=== PATIENT | female | born 1995 | race Caucasian/White ===

== ENCOUNTER 2024-02-21 08:21 | Emergency (ER) | payer BC, SELFPAY ==
[2024-02-21 08:34] VITALS: BP 115/87; PULSE 96; RESP 18; TEMP 36.6; O2SAT 98
[2024-02-21 08:35] VITALS: BP 115/87; PULSE 96; RESP 18; TEMP 36.6; O2SAT 98
--- NOTE | 2024-02-21 08:46 | ED.URI ---
HPI - URI/Sore Throat General Chief Complaint: Upper Respiratory Infection Stated Complaint: Sore throat Time Seen by Provider: 02/21/24 08:38 Source: patient and RN notes reviewed Mode of arrival: ambulatory Limitations: no limitations History of Present Illness HPI Narrative: Patient presents today with 3 day history of sore throat, postnasal drip, fatigue, cough, nasal congestion. Denies known fever. Currently rates her pain 7/10 and has been taking DayQuil and NyQuil without much relief. Related Data Allergies Allergy/AdvReac Type Severity Reaction Status Date / Time codeine AdvReac Vomiting Verified 02/21/24 08:35 Review of Systems Review of Systems: CONSTITUTIONAL: Denies body aches, fever, chills, or sweats.+ fatigue EYES: Denies visual changes, redness, or discharge. ENT: Denies rhinorrhea, or otalgia.+ congestion, sore throat, postnasal drip CARDIOVASCULAR: Denies chest pain, palpitations, or edema. RESPIRATORY: Denies dyspnea.+ cough GASTROINTESTINAL: Denies abdominal pain, nausea, vomiting, or diarrhea. GENITOURINARY: Denies dysuria or hematuria. SKIN: Denies rash, itching, or wounds. MUSCULOSKELETAL: Denies back pain, joint pain, or myalgia. NEUROLOGIC: Denies headache, numbness, tingling, or weakness. PSYCH: Denies depression or anxiety. PMFSH Comments At time of signature, I have reviewed and agree with nursing past medical, surgical, social and family history unless otherwise noted. Please see nursing chart for further information. There is no relevant family history pertinent to the presenting complaint Exam Narrative: GENERAL: Mildly ill-appearing, well-nourished, and in no acute distress. HEAD: Normocephalic, atraumatic. EYES: EOMI. No redness or drainage. Conjunctivae normal. ENT: Mucous membranes pink and moist. Nares clear. No rhinorrhea. TMs normal bilaterally. Throat erythematous without edema or exudate. Uvula midline. NECK: Normal AROM. Supple. Bilateral anterior cervical chain lymphadenopathy CHEST: No respiratory distress. Clear to auscultation. HEART: Regular rate and rhythm. No murmur appreciated. EXTREMITIES: Normal range of motion. No edema. SKIN: Warm, dry, no rash. Capillary refill normal. Normal skin turgor. NEURO: No focal deficits. Alert and oriented x3. Gait steady. PSYCH: Normal affect. No signs of depression or anxiety. Course Course Level of Care: Express Care Visit Vital Signs Vital signs: Vital Signs Temperature 97.8 F 02/21/24 08:34 Pulse Rate 96 02/21/24 08:34 Respiratory Rate 18 02/21/24 08:34 Blood Pressure 115/87 02/21/24 08:34 Pulse Oximetry 98 02/21/24 08:34 Oxygen Delivery Room Air 02/21/24 08:34 Temperature 97.8 F 02/21/24 08:35 Pulse Rate 96 02/21/24 08:35 Respiratory Rate 18 02/21/24 08:35 Blood Pressure 115/87 02/21/24 08:35 Pulse Oximetry 98 02/21/24 08:35 Oxygen Delivery Room Air 02/21/24 08:35 Reviewed MDM - URI/Sore Throat MDM Narrative Medical decision making narrative: Rapid strep positive. Prescription for amoxicillin sent pharmacy. Anticipatory guidance given. Differential Diagnosis Differential diagnosis: Likely upper respiratory infection, sinusitis, viral infection, influenza, pharyngitis and other (Strep throat, COVID) Lab Data Attestation: I reviewed the patient's lab results. Lab results narrative: Rapid strep positive. COVID-19 and influenza negative Critical Care Time Critical Care Time Critical Care Time: No Discharge Plan Discharge Clinical Impression: Strep throat Patient Disposition: Home, Self-Care Condition: Stable Instructions: Antibiotic Form, Strep Throat (DC) Additional Instructions: You have tested positive for strep throat. Please take the amoxicillin as prescribed until gone. You will be contagious for 24 hours after starting the medication. Take Tylenol or Ibuprofen for pain or fever, if able. Rest and stay hydrated. Follow up
[2024-02-22 14:30] LABS: EDSTREPNEGPOS1 Positive (Negative)
[2024-02-22 14:30] LABS: EDINFLUASCREEN Negative (Negative); EDINFLUBSCREEN Negative (Negative)
[2024-02-22 14:30] LABS: EDCOVIDSCREEN Negative (Negative)
== END 2024-02-21 09:02 | disposition home or self-care (01) ==
PROVIDERS: Emergency Provider Nurse Practitioner
DX: J02.0 Streptococcal pharyngitis (principal); Z20.822 Contact with and (suspected) exposure to COVID-19
CPT/HCPCS: 87426; 87804; 87880; 99213; G0463

== ENCOUNTER 2024-09-03 06:34 | Emergency (ER) | payer BC, SELFPAY ==
[2024-09-03 06:39] VITALS: BP 139/82; PULSE 97; RESP 18; TEMP 36.6; O2SAT 95
--- NOTE | 2024-09-03 07:14 | ED.GENADULT ---
HPI - General Adult General Chief complaint: Urogenital-Female Stated complaint: cant pee Time Seen by Provider: 09/03/24 06:57 History of Present Illness HPI narrative: This is a at 13 weeks gestation presenting for urinary retention. Patient has been having intermittent knee difficulty urinating during this but is usually able to go. She is having difficulty initiating and sustaining a stream. This morning she was no longer able to pass urine and then started developed significant suprapubic discomfort. Does not have any pain on urination urgency frequency. No visual changes or neurologic deficits. History of MS. Related Data Allergies Allergy/AdvReac Type Severity Reaction Status Date / Time codeine AdvReac Vomiting Verified 09/03/24 06:42 Exam Narrative: APPEARANCE: No apparent distress. Head: atraumatic. EYES: EOMI, NOSE: Atraumatic NECK: Trachea midline RESPIRATORY: No increased rate of breathing CARDIOVASCULAR: RRR, ABDOMINAL: Soft nontender no guarding rebound -Brar at already been placed by nursing staff MUSCULOSKELETAl: No obvious deformities NEURO: Alert. Moving 4/4 extremities SKIN:: Warm, dry. Normal color PSYCHIATRIC: Normal affect Point of care OB ultrasound showed a intrauterine with normal heart rate Course Vital Signs Vital signs: Vital Signs Temperature 97.8 F 09/03/24 06:39 Pulse Rate 97 09/03/24 06:39 Respiratory Rate 18 09/03/24 06:39 Blood Pressure 139/82 09/03/24 06:39 Pulse Oximetry 95 09/03/24 06:39 Oxygen Delivery Room Air 09/03/24 06:39 Temperature 97.8 F 09/03/24 06:39 Pulse Rate 97 09/03/24 06:39 Respiratory Rate 18 09/03/24 06:39 Blood Pressure 139/82 09/03/24 06:39 Pulse Oximetry 95 09/03/24 06:39 Oxygen Delivery Room Air 09/03/24 06:39 Medical Decision Making [facility] Narrative Medical decision making narrative: -Course: 29-year-old female presenting with urinary retention. No associated symptoms. Found have greater than 1 L in her bladder. Urinary catheter was placed. Urine not infected. She will be discharged to follow-up with urology. -DDX includes but is not limited to: Urinary retention, MS, complication Vital Signs Vital Signs: Vital Signs Temperature 97.8 F 09/03/24 06:39 Pulse Rate 97 09/03/24 06:39 Respiratory Rate 18 09/03/24 06:39 Blood Pressure 139/82 09/03/24 06:39 Pulse Oximetry 95 09/03/24 06:39 Oxygen Delivery Room Air 09/03/24 06:39 Temperature 97.8 F 09/03/24 06:39 Pulse Rate 97 09/03/24 06:39 Respiratory Rate 18 09/03/24 06:39 Blood Pressure 139/82 09/03/24 06:39 Pulse Oximetry 95 09/03/24 06:39 Oxygen Delivery Room Air 09/03/24 06:39 Lab Data Labs: Lab Results 09/03/24 Range/Units 07:07 Urine Color Yellow (Yellow) Urine Appearance Clear (Clear) Urine pH 7.5 (5.0-9.0) Ur Specific [place] 1.008 (1.001-1.035) Urine Protein Negative (Negative) mg/dL Urine Glucose (UA) Negative (Negative) mg/dL Urine Ketones Negative (Negative) mg/dL Ur Blood (Man) Negative (Negative) Urine Nitrate Negative (Negative) Urine Bilirubin Negative (Negative) Urine Urobilinogen 0.2 (<2.0) mg/dL Leukocyte Esterase Rfl Negative (Negative) KEYUR/UL Discharge Plan Discharge Clinical Impression: Acute urinary retention Patient Disposition: Home Condition: Stable Instructions: Antibiotic Form, Acute Urinary Retention in Women (ED) Additional Instructions: You were seen in the emergency department for urinary retention. Please keep the Brar in place until you are cleared by urology. Please follow-up with your urologist and your OB in 1 week. Patient Language: [place] Prescriptions: No Action amoxicillin 875 mg tablet 875 mg PO Q12H 10 Days Qty: 20 0RF Follow-up/Referrals: Reddy Nance MD [Physician] - 1 Week (Urinary retention) Flako Palacios MD [Physician] - 1 Week (Urinary retention in ) PHYSICIAN,SHIP CLEANER [Primary Care Provider] -
[2024-09-03 07:16] LABS: Add Urine Microscopic? NO; Appearance Urine Clear (Clear); Bilirubin Urine Negative (Negative); Blood Urine Negative (Negative); Color Urine Yellow (Yellow); Glucose Urine UA Negative (Negative); Ketones Urine Negative (Negative); Leukocyte Esterase Ur Negative LEU/UL (Negative); Nitrate Urine Negative (Negative); Protein Urine Negative (Negative); Specific Grav Ur 1.008 (1.001-1.035); Urobilinogen Urine 0.2 mg/dL (<2.0); pH Urine 7.5 (5.0-9.0)
[2024-09-03 08:58] VITALS: BP 116/79; PULSE 76; RESP 16; O2SAT 100
--- NOTE | 2024-09-03 08:58 | PC.NURSE ---
Leg bag applied prior to pt. d/c. Pt. taught how to empty catheter bag, when to clean catheter and how to change out catheter bags. All questions answered.
== END 2024-09-03 09:00 | disposition home or self-care (01) ==
PROVIDERS: Emergency Medicine; Emergency Provider Emergency Medicine
DX: O26.891 Other specified pregnancy related conditions, first trimester (principal); R33.9 Retention of urine, unspecified; O99.351 Diseases of the nervous system complicating pregnancy, first trimester; G35 Multiple sclerosis; Z3A.13 13 weeks gestation of pregnancy
CPT/HCPCS: 51702; 81003; 99283

== ENCOUNTER 2025-03-02 15:56 | Inpatient (IN) | payer BC, SELFPAY ==
[2025-03-02] VITALS (102 sets, daily range): BP systolic 99–132; BP diastolic 54–82; PULSE 58–109; RESP 17; TEMP 36.3–36.4; O2SAT 94–100; BMI 38.4
[2025-03-02 16:44] LABS: Hematocrit 35.4 % (37.0-47.0); Hemoglobin 11.9 g/dL (12.0-15.0); Immature Granulocyte Percent A 0.6 % (0-0.5); Lymphocytes Absolute Auto 2.65 K/mm3 (0.9-3.2); Mean Corpuscular HGB Conc 33.6 g/dl (32-36); Mean Corpuscular Hemoglobin 29.6 pg (26-34); Mean Corpuscular Volume 88.1 fl (80-100); Nucleated Red Blood Cells Absolute Auto 0.000 K/mm3 (0.0-0.012); Nucleated Red Blood Cells Perc 0.0 % (0.0-0.2); Platelet Count Result 265 k/mm3 (150-375); Red Blood Count 4.02 M/mm3 (4.2-5.4); White Blood Count 11.1 K/mm3 (4.5-10.0)
[2025-03-02] MEDS: DINOPROSTONE 10 MG VAG INSERT VAGINAL (17:15)
[2025-03-02 17:42] LABS: Syphilis IgG/IgM Antibody Non-Reactive (Nonreactive)
[2025-03-03] VITALS (163 sets, daily range): BP systolic 85–132; BP diastolic 47–86; PULSE 56–251; RESP 16–20; TEMP 36.1–37.4; O2SAT 95–100
[2025-03-03] MEDS: ACETAMINOPHEN 500 MG TABLET 1000 MG PO (01:46)
[2025-03-03] MEDS: LACTATED RINGERS 1,000 ML 125 ML IV CONT ×2 (05:35→10:03)
[2025-03-03] MEDS: OXYTOCIN 30 UNITS/NS 500 ML 30 UNITS/500 ML BAG IV CONT (05:38)
--- NOTE | 2025-03-03 06:18 | WPDANESEPP ---
Anes - Eval Pre Procedure Procedure: Labor Epidural Date/Time: 03/03/25 06:18 Surgeon: Maurice Preop Diagnosis: Labor Pain Pre Op Diagnosis: Induction of Labor Patient Data Age: 30 Gender: F Height: 1.75 m Weight: 118 kg Last Vital Signs Temp 36.4 C 03/03/25 05:07 Pulse 62 03/03/25 05:07 Resp 20 03/03/25 05:07 BP 122/79 03/03/25 05:07 Pulse Ox 100 03/03/25 06:17 O2 Del Method Room Air 03/02/25 16:42 Allergies Allergy/AdvReac Type Severity Reaction Status Date / Time codeine AdvReac Mild Vomiting Verified 03/03/25 05:38 Home Medications ?Medication ?Instructions ?Recorded ?Confirmed ?Type vit no.95-ferrous 1 tablet PO DAILY 02/02/25 03/02/25 History fumarate 28 mg-folic acid 800 mcg tablet () Laboratory Tests 03/02/25 16:38 WBC 11.1 H K/mm3 (4.5-10.0) RBC 4.02 L M/mm3 (4.2-5.4) Hgb 11.9 L g/dL (12.0-15.0) Hct 35.4 L % (37.0-47.0) MCV 88.1 fl (80-100) MCH 29.6 pg (26-34) MCHC 33.6 g/dl (32-36) RDW 13.3 % (11.5-14.5) Plt Count 265 k/mm3 (150-375) MPV 9.8 fl (7.4-10.4) Immature Gran % (Auto) 0.6 H % (0-0.5) Neut % (Auto) 64.3 % (45.5-73.1) Lymph % (Auto) 24.0 % (18.3-44.2) Jenkins % (Auto) 7.7 % (2.6-8.5) Eos % (Auto) 3.1 % (0-4.4) Baso % (Auto) 0.3 % (0.2-1.2) Lymph # (Auto) 2.65 K/mm3 (0.9-3.2) Jenkins # (Auto) 0.9 H K/mm3 (0.1-0.6) Eos # (Auto) 0.3 K/mm3 (0-0.3) Baso # (Auto) 0.0 K/mm3 (0.0-0.1) Abs Immat Gran (auto) 0.07 H K/mm3 (0.00-0.031) Absolute Neuts (auto) 7.1 H K/mm3 (1.3-6.7) Absolute Nucleated RBC 0.000 K/mm3 (0.0-0.012) Nucleated RBC % 0.0 % (0.0-0.2) Syphilis IgG/IgM Ab Non-reactive (Nonreactive) Blood Type B Positive Antibody Screen Negative Patient hx anesthesia problems: none Family hx anesthesia problems: none Results Review: All pre-operative results and documents have been reviewed as part of the pre-operative evaluation. [facility] Family History Family History (Updated 02/02/25 @ 12:29 by Tracie Kong RN) Father Diabetes mellitus Social History Social History Smoking status: Former smoker Additional smoking assessment comments: social Substance use: never Lack of Transportation: No Lack of Food: Never True Current Housing: I Have Housing Concerned About Future Housing: No Difficulty Paying Gas/Electric Bills: No Difficulty Paying for Meds: No Currently Unemployed: No Education: Bachelor's Degree Difficulty w/ Childcare or Family Care: No Spiritual care concerns: No Exam Day of Procedure 03/03/25 06:18 Patient weight: normal Heart: regular rate and rhythm Lungs: normal air movement Airway: Mallampati scale class II Neurological: alert and oriented
--- NOTE | 2025-03-03 06:40 | PM.IMHP ---
H&P: HPI History of Present Illness Date/Time: 03/03/25 06:40 Chief Complaint: Induction of labor at term Narrative: This is a 30-year-old 2 para 1 whose last menstrual period was 05/30/2024, EDC is 03/04/2025, confirmed by 10 week ultrasound presents at 39 weeks gestation for induction of labor. She is negative for group B strep abnormal diabetic screen. She requested induction of labor term Review of Systems Review of Systems: CONSTITUTIONAL: Denies body aches, fever, chills, or sweats.+ fatigue EYES: Denies visual changes, redness, or discharge. ENT: Denies rhinorrhea, or otalgia.+ congestion, sore throat, postnasal drip CARDIOVASCULAR: Denies chest pain, palpitations, or edema. RESPIRATORY: Denies dyspnea.+ cough GASTROINTESTINAL: Denies abdominal pain, nausea, vomiting, or diarrhea. GENITOURINARY: Denies dysuria or hematuria. SKIN: Denies rash, itching, or wounds. MUSCULOSKELETAL: Denies back pain, joint pain, or myalgia. NEUROLOGIC: Denies headache, numbness, tingling, or weakness. PSYCH: Denies depression or anxiety. [facility] Family History Family History Father Diabetes mellitus Social History Social History Smoking status: Former smoker Additional smoking assessment comments: social Substance use: never Lack of Transportation: No Lack of Food: Never True Current Housing: I Have Housing Concerned About Future Housing: No Difficulty Paying Gas/Electric Bills: No Difficulty Paying for Meds: No Currently Unemployed: No Education: Bachelor's Degree Difficulty w/ Childcare or Family Care: No Spiritual care concerns: No Meds Home Medications and Allergies Home Medications ?Medication ?Instructions ?Recorded ?Confirmed ?Type vit no.95-ferrous 1 tablet PO DAILY 02/02/25 03/02/25 History fumarate 28 mg-folic acid 800 mcg tablet () Allergies Allergy/AdvReac Type Severity Reaction Status Date / Time codeine AdvReac Mild Vomiting Verified 03/03/25 05:38 Vital Signs Vital Signs - 24 hr 03/02/25 16:25 03/02/25 16:26 03/02/25 16:27 Temperature Pulse Rate 81 Respiratory Rate Blood Pressure 132/73 Pulse Oximetry 95 96 Oxygen Delivery 03/02/25 16:32 03/02/25 16:34 03/02/25 16:39 Temperature Pulse Rate Respiratory Rate Blood Pressure Pulse Oximetry 97 100 99 Oxygen Delivery 03/02/25 16:42 03/02/25 16:44 03/02/25 16:46 Temperature Pulse Rate 77 Respiratory Rate Blood Pressure 123/78 Pulse Oximetry 99 Oxygen Delivery Room Air 03/02/25 16:49 03/02/25 16:54 03/02/25 16:59 Temperature Pulse Rate Respiratory Rate Blood Pressure Pulse Oximetry 99 99 99 Oxygen Delivery 03/02/25 17:00 03/02/25 17:04 03/02/25 17:09 Temperature 97.4 F L Pulse Rate Respiratory Rate Blood Pressure Pulse Oximetry 99 99 Oxygen Delivery 03/02/25 17:18 03/02/25 17:23 03/02/25 17:28 Temperature Pulse Rate Respiratory Rate Blood Pressure Pulse Oximetry 96 95 96 Oxygen Delivery 03/02/25 17:31 03/02/25 17:33 03/02/25 17:38 Temperature Pulse Rate 60 Respiratory Rate Blood Pressure 132/67 Pulse Oximetry 95 95 Oxygen Delivery 03/02/25 17:43 03/02/25 17:46 03/02/25 17:48 Temperature Pulse Rate 71 Respiratory Rate Blood Pressure 126/63 Pulse Oximetry 94 95 Oxygen Delivery 03/02/25 17:53 03/02/25 17:58 03/02/25 18:01 Temperature Pulse Rate 71 Respiratory Rate Blood Pressure 111/62 Pulse Oximetry 99 100 Oxygen Delivery 03/02/25 18:03 03/02/25 18:08 03/02/25 18:13 Temperature Pulse Rate Respiratory Rate Blood Pressure Pulse Oximetry 100 100 100 Oxygen Delivery 03/02/25 18:16 03/02/25 18:18 03/02/25 18:23 Temperature 97.5 F L Pulse Rate 63 Respiratory Rate 17 Blood Pressure 115/54 L Pulse Oximetry 100 100 Oxygen Delivery 03/02/25 18:28 03/02/25 18:31 03/02/25 18:33 Temperature Pulse Rate 67 Respiratory Rate Blood Pressure 99/67 L Pulse Oximetry 100 100 Oxygen Delivery 03/02/25 18:38 03/02/25 18:41 03/02/25 18:46 Temperature Pulse Rate 67 Respiratory Rate Blood Pressure 103/60 Pulse Oximetry 100 100 100 Oxygen Delivery 03/02/25 18:51 03/02/25 18:56 03/02/25 19:01 Temperature Pulse Rate 71 Respiratory Rate Blood Pressure 107/58 L Pulse Oximetry 100 100 100 Oxygen Delivery 03/02/25 19:06 03/02/25 19:11 03/02/25 19:16 Temperature Pulse Rate 61 Respiratory Rate Blood Pressure 101/56 L Pulse Oximetry 100 100 100 Oxygen Delivery 03/02/25 19:21 03/02/25 19:26 03/02/25 19:30 Temperature Pulse Rate Respiratory Rate Blood Pressure Pulse Oximetry 100 100 100 Oxygen Delivery 03/02/25 19:31 03/02/25 19:36 03/02/25 19:41 Temperature Pulse Rate 63 Respiratory Rate Blood Pressure 120/75 Pulse Oximetry 100 100 Oxygen Delivery 03/02/25 19:46 03/02/25 19:51 03/02/25 19:56 Temperature Pulse Rate 62 Respiratory Rate Blood Pressure 122/62 Pulse Oximetry 100 100 100 Oxygen Delivery 03/02/25 20:01 03/02/25 20:06 03/02/25 20:11 Temperature Pulse Rate 71 Respiratory Rate Blood Pressure 119/76 Pulse Oximetry 99 100 100 Oxygen Delivery 03/02/25 20:16 03/02/25 20:21 03/02/25 20:26 Temperature Pulse Rate 73 Respiratory Rate Blood Pressure 122/70 Pulse Oximetry 99 100 100 Oxygen Delivery 03/02/25 20:31 03/02/25 20:36 03/02/25 20:41 Temperature Pulse Rate 82 Respiratory Rate Blood Pressure 113/72 Pulse Oximetry 98 98 99 Oxygen Delivery 03/02/25 20:46 03/02/25 20:51 03/02/25 20:56 Temperature Pulse Rate 77 Respiratory Rate Blood Pressure 112/68 Pulse Oximetry 99 98 99 Oxygen Delivery 03/02/25 21:01 03/02/25 21:06 03/02/25 21:11 Temperature Pulse Rate 69 Respiratory Rate Blood Pressure 123/74 Pulse Oximetry 99 98 99 Oxygen Delivery 03/02/25 21:16 03/02/25 21:21 03/02/25 21:26 Temperature Pulse Rate 73 Respiratory Rate Blood Pressure 127/82 Pulse Oximetry 99 100 99 Oxygen Delivery 03/02/25 21:31 03/02/25 21:36 03/02/25 21:41 Temperature Pulse Rate 68 Respiratory Rate Blood Pressure 115/71 Pulse Oximetry 100 99 99 Oxygen Delivery 03/02/25 21:46 03/02/25 21:53 03/02/25 21:58 Temperature 97.4 F L Pulse Rate 65 Respiratory Rate Blood Pressure 117/67 Pulse Oximetry 99 100 100 Oxygen Delivery 03/02/25 22:03 03/02/25 22:08 03/02/25 22:13 Temperature Pulse Rate Respiratory Rate Blood Pressure Pulse Oximetry 99 99 98 Oxygen Delivery 03/02/25 22:18 03/02/25 22:23 03/02/25 22:28 Temperature Pulse Rate Respiratory Rate Blood Pressure Pulse Oximetry 99 98 99 Oxygen Delivery 03/02/25 22:33 03/02/25 22:38 03/02/25 22:43 Temperature Pulse Rate Respiratory Rate Blood Pressure Pulse Oximetry 100 99 98 Oxygen Delivery 03/02/25 22:48 03/02/25 22:53 03/02/25 22:58 Temperature Pulse Rate Respiratory Rate Blood Pressure Pulse Oximetry 98 98 100 Oxygen Delivery 03/02/25 23:04 03/02/25 23:09 03/02/25 23:14 Temperature Pulse Rate Respiratory Rate Blood Pressure Pulse Oximetry 100 100 100 Oxygen Delivery 03/02/25 23:19 03/02/25 23:24 03/02/25 23:29 Temperature Pulse Rate Respiratory Rate Blood Pressure Pulse Oximetry 100 100 100 Oxygen Delivery 03/02/25 23:30 03/02/25 23:34 03/02/25 23:39 Temperature Pulse Rate 67 Respiratory Rate Blood Pressure 106/64 Pulse Oximetry 100 99 Oxygen Delivery 03/02/25 23:44 03/02/25 23:49 03/02/25 23:54 Temperature Pulse Rate Respiratory Rate Blood Pressure Pulse Oximetry 100 100 100 Oxygen Delivery 03/02/25 23:59 03/03/25 00:04 03/03/25 00:09 Temperature Pulse Rate Respiratory Rate Blood Pressure Pulse Oximetry 100 100 100 Oxygen Delivery 03/03/25 00:14 03/03/25 00:19 03/03/25 00:24 Temperature Pulse Rate Respiratory Rate Blood Pressure Pulse Oximetry 100 100 100 Oxygen Delivery 03/03/25 00:29 03/03/25 00:34 03/03/25 00:39 Temperature Pulse Rate Respiratory Rate Blood Pressure Pulse Oximetry 100 100 100 Oxygen Delivery 03/03/25 00:44 03/03/25 00:52 03/03/25 00:57 Temperature Pulse Rate Respiratory Rate Blood Pressure Pulse Oximetry 99 100 100 Oxygen Delivery 03/03/25 01:02 03/03/25 01:07 03/03/25 01:12 Temperature Pulse Rate Respiratory Rate Blood Pressure Pulse Oximetry 100 100 100 Oxygen Delivery 03/03/25 01:17 03/03/25 01:22 03/03/25 01:27 Temperature Pulse Rate Respiratory Rate Blood Pressure Pulse Oximetry 100 100 100 Oxygen Delivery 03/03/25 01:32 03/03/25 01:37 03/03/25 01:42 Temperature Pulse Rate Respiratory Rate Blood Pressure Pulse Oximetry 100 100 100 Oxygen Delivery 03/03/25 01:44 03/03/25 01:47 03/03/25 01:52 Temperature 97.5 F L Pulse Rate 68 Respiratory Rate 19 Blood Pressure 93/59 L Pulse Oximetry 100 100 Oxygen Delivery 03/03/25 01:57 03/03/25 02:02 03/03/25 02:07 Temperature Pulse Rate Respiratory Rate Blood Pressure Pulse Oximetry 100 100 100 Oxygen Delivery 03/03/25 02:12 03/03/25 02:17 03/03/25 02:22 Temperature Pulse Rate Respiratory Rate Blood Pressure Pulse Oximetry 99 99 100 Oxygen Delivery 03/03/25 02:27 03/03/25 02:32 03/03/25 02:37 Temperature Pulse Rate Respiratory Rate Blood Pressure Pulse Oximetry 100 98 100 Oxygen Delivery 03/03/25 02:42 03/03/25 02:47 03/03/25 02:51 Temperature Pulse Rate Respiratory Rate Blood Pressure Pulse Oximetry 100 100 98 Oxygen Delivery 03/03/25 02:56 03/03/25 03:01 03/03/25 03:06 Temperature Pulse Rate Respiratory Rate Blood Pressure Pulse Oximetry 99 98 98 Oxygen Delivery 03/03/25 03:11 03/03/25 03:16 03/03/25 03:21 Temperature Pulse Rate Respiratory Rate Blood Pressure Pulse Oximetry 98 98 98 Oxygen Delivery 03/03/25 03:26 03/03/25 03:31 03/03/25 03:36 Temperature Pulse Rate Respiratory Rate Blood Pressure Pulse Oximetry 99 98 99 Oxygen Delivery 03/03/25 03:41 03/03/25 03:46 03/03/25 03:47 Temperature Pulse Rate 68 Respiratory Rate Blood Pressure 93/54 L Pulse Oximetry 99 100 Oxygen Delivery 03/03/25 03:51 03/03/25 03:56 03/03/25 04:01 Temperature Pulse Rate 62 Respiratory Rate Blood Pressure 102/68 Pulse Oximetry 100 100 98 Oxygen Delivery 03/03/25 04:06 03/03/25 04:11 03/03/25 04:16 Temperature Pulse Rate Respiratory Rate Blood Pressure Pulse Oximetry 99 99 99 Oxygen Delivery 03/03/25 04:21 03/03/25 04:26 03/03/25 04:31 Temperature Pulse Rate Respiratory Rate Blood Pressure Pulse Oximetry 99 99 98 Oxygen Delivery 03/03/25 04:36 03/03/25 04:41 03/03/25 04:46 Temperature Pulse Rate Respiratory Rate Blood Pressure Pulse Oximetry 99 98 99 Oxygen Delivery 03/03/25 04:51 03/03/25 04:56 03/03/25 05:01 Temperature Pulse Rate Respiratory Rate Blood Pressure Pulse Oximetry 99 100 100 Oxygen Delivery 03/03/25 05:02 03/03/25 05:05 03/03/25 05:07 Temperature 97.6 F Pulse Rate 63 62 Respiratory Rate 20 Blood Pressure 120/79 122/79 Pulse Oximetry 100 100 Oxygen Delivery 03/03/25 05:12 03/03/25 05:17 03/03/25 05:22 Temperature Pulse Rate Respiratory Rate Blood Pressure Pulse Oximetry 99 100 100 Oxygen Delivery 03/03/25 05:27 03/03/25 05:32 03/03/25 05:37 Temperature Pulse Rate Respiratory Rate Blood Pressure Pulse Oximetry 100 100 99 Oxygen Delivery 03/03/25 05:42 03/03/25 05:47 03/03/25 05:52 Temperature Pulse Rate Respiratory Rate Blood Pressure Pulse Oximetry 99 99 99 Oxygen Delivery 03/03/25 05:57 03/03/25 06:02 03/03/25 06:07 Temperature Pulse Rate Respiratory Rate Blood Pressure Pulse Oximetry 99 99 99 Oxygen Delivery 03/03/25 06:12 03/03/25 06:17 03/03/25 06:22 Temperature Pulse Rate Respiratory Rate Blood Pressure Pulse Oximetry 100 100 100 Oxygen Delivery 03/03/25 06:24 03/03/25 06:27 03/03/25 06:29 Temperature Pulse Rate 75 68 Respiratory Rate Blood Pressure 132/86 123/85 Pulse Oximetry 99 Oxygen Delivery 03/03/25 06:31 03/03/25 06:32 03/03/25 06:34 Temperature Pulse Rate 70 71 Respiratory Rate Blood Pressure 132/83 128/84 Pulse Oximetry 100 Oxygen Delivery 03/03/25 06:36 03/03/25 06:37 Temperature Pulse Rate 65 Respiratory Rate Blood Pressure 124/68 Pulse Oximetry 100 Oxygen Delivery Exam Const: General: cooperative, healthy appearing, comfortable and overweight Orientation/consciousness: oriented to person, oriented to place and oriented to time HENMT: Head: normal to inspection Resp: Effort & Inspection: normal respiratory effort Cardio: Rate: regular rate Rhythm: regular rhythm Heart sounds: S1 normal heart sound present and S2 normal heart sound present GI: Inspection: normal to inspection (Gravid soft uterus) : External Female Exam: normal external appearance Speculum Exam - Vagina: normal appearance of the vagina Speculum Exam - Cervix: normal appearance of the cervix (Cervix 2/50/2 attempted a round. FHTs reassuring) H&P: Results Labs Labs: Short CBC 03/02/25 Range/Units 16:38 WBC 11.1 H (4.5-10.0) K/mm3 Hgb 11.9 L (12.0-15.0) g/dL Hct 35.4 L (37.0-47.0) % Plt Count 265 (150-375) k/mm3 Assessment and Plan Assessment and plan (1) Term : Code(s): Z34.90 - Encounter for supervision of normal , unspecified, unspecified trimester Status: Acute Plan Cervidil was placed last night. Pitocin begun this morning. Epidural is in. Spontaneous vaginal delivery is expected.
--- NOTE | 2025-03-03 08:54 | PM.OBPNLAB ---
Pain Control Date/time seen: 03/03/25 08:54 Pain control: tolerating well and epidural Pelvic Exam Dilation (cm): 3 Effacement (%): 75 station: -1 Amniotic membrane status: Leaking Contractions Monitor mode: Internal
--- NOTE | 2025-03-03 10:27 | PM.OBPNLAB ---
Pain Control Date/time seen: 03/03/25 10:27 Pain control: tolerating well and epidural Pelvic Exam Dilation (cm): 8 Effacement (%): 100 station: -1 Amniotic membrane status: Leaking Contractions Monitor mode: Internal
--- NOTE | 2025-03-03 11:00 | P.PCNOB_ITS ---
OB - Vaginal Delivery Note Procedure Delivery date: 03/03/25 Events: Elective Induction of Labor Induction method: Per Cervidil Protocol Delivery augmentation: Rupture of Membranes and Pitocin Delivery monitor: External FHT and Internal Uterine Route of delivery: Episiotomy description: None Laceration Description: Perineal - 2nd Degree Delivery repair: vicryl Specimen: No Quantitative Blood Loss (ml): 62 Anesthesia type: Epidural Disposition: Floor Complications: No immediate complications Narrative: Patient was admitted for induction of labor at term. She had Cervidil placed on the evening and the artificially was ruptured in the a.m. epidural anesthesia was placed Restoril unremarkable 1st stage of labor to completely dilated which complete she pushed delivered the head spontaneously in the FAUSTO position. Nuchal cord checked noted be loose x2 renal or on the occiput anterior posterior shoulder delivered spontaneously. Cord clamped x2 and cut and paste 1 were given Apgars of 9 [id number]. Cord blood was drawn. Placenta delivered intact spontaneously. Twenty of Pitocin placed IV to help firm the uterus second-degree laceration was noted which did not extend and was closed with layered 3-0 Vicryl QBL was 62cc. All sponge, needle, instrument counts correct. There were no immediate complications [place] Baby Time of : 10:47 Gestational Age by Date: 39 Infant gender: Male presentation: vertex position: Right Occiput Anterior Placenta delivery description: Spontaneous Cord Vessel Description: 3 Vessels, Nuchal Cord, Loose (X2) and Delayed Cord Clamping score one minute: 9 score five minutes: 9
--- NOTE | 2025-03-03 11:03 | PM.DS ---
DS: Admitting Diagnosis Discharge Date 03/04/2025 Admitting Diagnosis Term DS: Discharge Diagnosis Discharge Diagnosis (1) Term : Code(s): Z34.90 - Encounter for supervision of normal , unspecified, unspecified trimester Status: Acute DS: Summary Hospital Course Reason for hospitalization: Patient was admitted on 03/02/2025 for induction of labor with Cervidil and spontaneously delivered on 03/03/2025 Hospital Course: Patient's hospital course unremarkable. She remained afebrile. She was up, voiding without difficulty, eating regular diet, ambulating, and generally without complaints. Time Spent with Patient Time attestation: Total time spent providing and/or coordinating discharge services: Exam Const: General: cooperative, healthy appearing, comfortable and overweight Orientation/consciousness: oriented to person, oriented to place and oriented to time HENMT: Head: normal to inspection Resp: Effort & Inspection: normal respiratory effort Cardio: Rate: regular rate Rhythm: regular rhythm Heart sounds: S1 normal heart sound present and S2 normal heart sound present GI: Inspection: normal to inspection (Gravid soft uterus) : External Female Exam: normal external appearance Speculum Exam - Vagina: normal appearance of the vagina Speculum Exam - Cervix: normal appearance of the cervix (Cervix 2/50/2 attempted a round. FHTs reassuring) DS: Data Data Completed and Pending Labs on day of discharge: Labs from last 24 hours 03/02/25 16:38 WBC 11.1 H RBC 4.02 L Hgb 11.9 L Hct 35.4 L MCV 88.1 MCH 29.6 MCHC 33.6 RDW 13.3 Plt Count 265 MPV 9.8 Immature Gran % (Auto) 0.6 H Neut % (Auto) 64.3 Lymph % (Auto) 24.0 [place] % (Auto) 7.7 Eos % (Auto) 3.1 Baso % (Auto) 0.3 Lymph # (Auto) 2.65 [place] # (Auto) 0.9 H Eos # (Auto) 0.3 Baso # (Auto) 0.0 Abs Immat Gran (auto) 0.07 H Absolute Neuts (auto) 7.1 H Absolute Nucleated RBC 0.000 Nucleated RBC % 0.0 Syphilis IgG/IgM Ab Non-reactive Blood Type B Positive Antibody Screen Negative Discharge Plan Discharge Attending physician on discharge: [place],Reddy J. Discharging Clinician: Reddy Nance Patient Disposition: Home Activity: may shower and no straining Diet: heart healthy Wound Care Instructions: follow printed instructions Patient Instructions: Antibiotic Form Patient Language: [place] Stand Alone Forms: General Discharge Information Follow-up/Referrals: Reddy Nance MD [Physician, [employer]] Discharge Medications: Continued PNV no.95-ferrous fumarate-FA [] 28 mg iron- 800 mcg tablet 1 tablet PO DAILY Date of admission: 03/02/25 15:56 Primary Care Provider: PHYSICIAN,FARM LABORER Admitting Provider: Reddy Nance Attending physician on admission: Reddy Nance Condition: Stable
[2025-03-03] MEDS: OXYTOCIN 30 UNITS/NS 500 ML 30 UNITS/500 ML BAG 125 UNITS IV CONT (11:27)
--- NOTE | 2025-03-03 13:30 | PC.NURSE ---
Patient transferred to post room #292 via wheelchair. Support person present. Oriented to unit, room, information board, rooming in, admission packet and security measures. Patient verbalizes understanding.
[2025-03-03] MEDS: ACETAMINOPHEN 325 MG TABLET 650 MG PO ×2 (14:55→20:30)
[2025-03-03] MEDS: IBUPROFEN 600 MG TABLET PO (20:30)
[2025-03-04 00:08] VITALS: BP 101/59; PULSE 64; RESP 18; TEMP 36.5; O2SAT 98
[2025-03-04] MEDS: ACETAMINOPHEN 325 MG TABLET 650 MG PO ×2 (02:32→08:30)
[2025-03-04] MEDS: IBUPROFEN 600 MG TABLET PO ×2 (02:32→09:20)
[2025-03-04 04:24] LABS: Hematocrit 35.9 % (37.0-47.0); Hemoglobin 11.5 g/dL (12.0-15.0)
--- NOTE | 2025-03-04 06:09 | P.PNOB_ITS ---
OB - PN: Subj Subjective Date/time seen: 03/04/25 06:09 Patient comments: no complaints, pain well controlled and tolerating diet [place] baby status: doing well OB - PN: Obj Data Labs 03/04/25 04:18 Labs: Laboratory Results - last 24 hr 03/04/25 04:18 Hgb 11.5 L Hct 35.9 L OB - PN A/P Assessment and Plan (1) Term : Code(s): Z34.90 - Encounter for supervision of normal , unspecified, unspecified trimester Status: Acute Plan home. fu 6 weeks Time Spent With Patient Time: Total time spent is greater than 50% in coordination of care (as documented) at patient's floor/unit and/or counseling patient: Review of Systems 2 Review of Systems: CONSTITUTIONAL: Denies body aches, fever, chills, or sweats.+ fatigue EYES: Denies visual changes, redness, or discharge. ENT: Denies rhinorrhea, or otalgia.+ congestion, sore throat, postnasal drip CARDIOVASCULAR: Denies chest pain, palpitations, or edema. RESPIRATORY: Denies dyspnea.+ cough GASTROINTESTINAL: Denies abdominal pain, nausea, vomiting, or diarrhea. GENITOURINARY: Denies dysuria or hematuria. SKIN: Denies rash, itching, or wounds. MUSCULOSKELETAL: Denies back pain, joint pain, or myalgia. NEUROLOGIC: Denies headache, numbness, tingling, or weakness. PSYCH: Denies depression or anxiety. Exam 2 Const: General: cooperative, healthy appearing, comfortable and overweight Orientation/consciousness: oriented to person, oriented to place and oriented to time HENMT: Head: normal to inspection Resp: Effort & Inspection: normal respiratory effort Cardio: Rate: regular rate Rhythm: regular rhythm Heart sounds: S1 normal heart sound present and S2 normal heart sound present GI: Inspection: normal to inspection (Gravid soft uterus) : External Female Exam: normal external appearance Speculum Exam - Vagina: normal appearance of the vagina Speculum Exam - Cervix: normal appearance of the cervix (Cervix 2/50/2 attempted a round. FHTs reassuring)
[2025-03-04 08:25] VITALS: BP 105/63; PULSE 60; RESP 16; TEMP 36.6; O2SAT 97
[2025-03-04] MEDS: DOCUSATE SODIUM 100 MG CAPSULE PO (08:30)
[2025-03-04] MEDS: MULTIVIT/MIN/PREN/FOL AC/IRON TABLET 1 TAB PO (08:30)
--- NOTE | 2025-03-04 09:19 | PC.NURSE ---
Per Primary RN, mother wishes to only bottle feed formula, she will not be putting baby to breast or using her breast pump.
[2025-03-06 11:17] VITALS: BP 119/74; PULSE 100; RESP 18; TEMP 36.4; O2SAT 97
== END 2025-03-04 17:30 | disposition home or self-care (01) | DRG 807 ==
LOC: ANHLDR 03-03 11:05 → ANHOB2 03-03 13:31
PROVIDERS: Admitting Provider Obstetrics & Gynecology; Visit Provider Obstetrics & Gynecology
DX: O69.81X0 Labor and delivery complicated by cord around neck, without compression, not applicable or unspecified (principal); Z37.0 Single live birth; Z3A.39 39 weeks gestation of pregnancy; O70.1 Second degree perineal laceration during delivery
CPT/HCPCS: 36415; 85014; 85018; 85025; 86593; 86850; 86900; 86901; A9270; J2590; J2795; J7120

== ENCOUNTER 2025-03-24 13:13 | Emergency (ER) | payer BC, SELFPAY ==
[2025-03-24 13:21] VITALS: BP 105/75; PULSE 90; RESP 18; TEMP 36.5; O2SAT 99
--- NOTE | 2025-03-24 13:34 | ED_ITS ---
HPI - URI/Sore Throat General Chief Complaint: Upper Respiratory Infection Stated Complaint: URI Time Seen by Provider: 03/24/25 13:20 Source: patient and RN notes reviewed Mode of arrival: ambulatory Limitations: no limitations History of Present Illness HPI Narrative: 30-year-old female presents Express Care complaining of upper respiratory symptoms for 2 weeks. Patient reports cough, congestion, sinus pressure, chest congestion, mucopurulent nasal drainage that is not seem to be getting any better. Patient says she is 3 weeks , she says she is not currently . Patient denies any fevers or body aches, chills, nausea vomiting, diarrhea, chest pain, difficulty breathing, wheezing, or any other symptoms. Patient reports history of a tonsillectomy. Patient taking [id number] cold/flu medication with some relief. Related Data Home Medications ?Medication ?Instructions ?Recorded ?Confirmed ?Last Taken ?Type vit no.95-ferrous 1 tablet PO DAILY 02/02/25 03/24/25 03/02/25 History fumarate 28 mg-folic acid 800 mcg tablet () Allergies Allergy/AdvReac Type Severity Reaction Status Date / Time codeine AdvReac Intermediate Vomiting Verified 03/24/25 13:15 Review of Systems Review of Systems: CONSTITUTIONAL: Denies fever, chills, body aches, or sweats. EYES: Denies visual changes, redness, or discharge. ENT: Positive for mucopurulent nasal drainage, congestion. Negative for rhinorrhea sore throat, or otalgia. CARDIOVASCULAR: Denies chest pain, palpitations, or edema. RESPIRATORY: Positive for cough. Negative for dyspnea or wheezing. GASTROINTESTINAL: Denies abdominal pain, nausea, vomiting, or diarrhea. GENITOURINARY: Denies dysuria or hematuria. SKIN: Denies rash or itching. MUSCULOSKELETAL: Denies back pain, joint pain, or myalgia. NEUROLOGIC: Denies headache, numbness, or weakness. PSYCHIATRIC: Denies anxiety or depression. All other systems reviewed are negative, except as documented in HPI. [facility] Family History Family History Father Diabetes mellitus Social History Social History Smoking status: Former smoker Additional smoking assessment comments: social Substance use: never Lack of Transportation: No Lack of Food: Never True Current Housing: I Have Housing Concerned About Future Housing: No Difficulty Paying Gas/Electric Bills: No Difficulty Paying for Meds: No Currently Unemployed: No Education: Bachelor's Degree Difficulty w/ Childcare or Family Care: No Spiritual care concerns: No Comments At the time of my signature, I reviewed and agree with the nursing past medical, surgical, social, and family history. There is no relevant family history pertinent to the patient complaint. Exam Narrative: GENERAL: This is a well-nourished, well-developed adult, in no apparent distress. They are non ill-appearing, nontoxic appearing. HEAD: normocephalic, atraumatic. EYES: Sclera clear/white. Vision is grossly intact. Conjunctiva normal bilaterally. Extraocular movements intact. EARS: External ears normal, auditory canals clear and without drainage, TMs without erythema or perforation. Hearing grossly intact. NOSE: External nose normal with no obvious nasal discharge, nasal turbinates erythematous with exudate, no rhinorrhea. THROAT: Mucous membranes moist, posterior pharynx erythemic without swelling. Uvula is midline. Postnasal drip present. NECK: Neck supple, non-tender without lymphadenopathy, masses or thyromegaly. CARDIOVASCULAR: Regular rate and rhythm without murmurs, gallops, or rubs. RESPIRATORY: Clear to auscultation. Breath sounds equal bilaterally. No wheezes, rales, or rhonchi. SKIN: warm, Dry, intact with no suspicious lesions or rash, good texture and turgor. NEURO: awake, alert, and oriented to person, place and time. There were no obvious focal neurologic abnormalities. EXTREMITIES: No joint tenderness, effusion, or edema noted. BACK: Nontender without deformity. Course Course Emergency Course: Portions of this record may have been created with voice recognition software Level of Care: Express Care Visit Vital Signs Vital signs: Vital Signs Temperature 97.7 F 03/24/25 13:21 Pulse Rate 90 03/24/25 13:21 Respiratory Rate 18 03/24/25 13:21 Blood Pressure 105/75 03/24/25 13:21 Pulse Oximetry 99 03/24/25 13:21 Oxygen Delivery Room Air 03/24/25 13:21 Temperature 97.7 F 03/24/25 13:21 Pulse Rate 90 03/24/25 13:21 Respiratory Rate 18 03/24/25 13:21 Blood Pressure 105/75 03/24/25 13:21 Pulse Oximetry 99 03/24/25 13:21 Oxygen Delivery Room Air 03/24/25 13:21 MDM - URI/Sore Throat MDM Narrative Medical decision making narrative: Given patient's length of symptoms likely she has developed a bacterial sinusitis. Will treat with Augmentin. Discussed physical exam findings. Advised supportive measures and signs/symptoms to go to the ER. Pt is appropriate for outpt treatment and f/u. Differential Diagnosis Differential diagnosis: Likely upper respiratory infection, otitis media, sinusitis and pharyngitis Discharge Plan Discharge Clinical Impression: Sinusitis Patient Disposition: Home Condition: Stable Instructions: Antibiotic Form, Sinusitis (ED) Additional Instructions: Take the antibiotics as directed and complete the course even if you start to feel better. You may use a Neti pot saline rinse 3 times a day with lukewarm distilled water Continue to take Tylenol or Motrin as needed for pain or fevers. Follow instructions on the bottle. Use a humidifier or vaporizer at night. Drink plenty of water. 8-10 glasses per day. Use flonase 2 times per day for 5 days then as needed Take mucinex 2 times per day and be sure to take with 8oz of water. Follow up with Primary provider in 3-5 days Please go to the ER if he develops any difficulty breathing, worsening symptoms, chest pains, vomiting, fevers, or any other serious concerns Patient Language: [place] Zealander Prescriptions: New amoxicillin-pot clavulanate 875-125 mg tablet 1 tablet PO Q12H 7 Days Qty: 14 0RF No Action PNV no.95-ferrous fumarate-FA [] 28 mg iron- 800 mcg tablet 1 tablet PO DAILY Follow-up/Referrals: PHYSICIAN,GLUING MACHINE OFFBEARER [Primary Care Provider, Internal Medicine] Time of Disposition: 13:34
== END 2025-03-24 13:41 | disposition home or self-care (01) ==
DX: O99.53 Diseases of the respiratory system complicating the puerperium (principal); J32.9 Chronic sinusitis, unspecified; Z87.891 Personal history of nicotine dependence
CPT/HCPCS: 99213; G0463